=== PATIENT | female | born 2000 | race Caucasian/White ===

== ENCOUNTER 2021-03-06 17:35 | Emergency (ER) | payer BC ==
[~2021-03-06] VITALS: Ht 172.7 cm; Wt 81.6 kg
[~2021-03-06 17:35] MED LIST: AMOXICILLIN500 M2 PO; ANTIVERT/2525 MG PO; MIRALAX POWDER17 G1 PO; MOTRIN100 MG/5 M PO; MOTRIN600 MG PO; NKHM; ROBITUSSIN DM120 ML PO; TYLENOL W/CODE480 ML PO; ZITHROMAX Z PA250 MG PO; ZITHROMAX250 MG PO; ZYRTEC10 MG PO
[2021-03-06 17:55] VITALS: BP 177/107
[2021-03-06 18:34] LABS: BASO % 0.2 % (0.0-1.0); HEMATOCRIT 36.2 % (37.0-47.0); LYMPH # 1.3 10*3/uL (1.3-4.4); LYMPH % 12.9 % (27.0-41.0); MEAN CELL VOLUME 88.1 fl (81.0-99.0); MEAN CORPUSCULAR HGB 28.5 pg (27.0-31.0); MEAN CORPUSCULAR HGB CONC 32.3 g/dl (33.0-37.0); MONO % 9.9 % (3.0-9.0); NEUT # 7.4 10*3/uL (2.3-7.9); NEUT % 76.6 % (47.0-73.0); PLATELET COUNT AUTOMATED 273 10*3/uL (130-400); RED BLOOD COUNT 4.11 10*6/uL (4.10-5.10); RED CELL DISTRI WIDTH 11.6 % (0-14.5); WHITE BLOOD COUNT 9.7 10*3/uL (4.8-10.8)
[2021-03-06 18:50] LABS: ALBUMIN 3.1 gm/dl (3.1-4.5); ALKALINE PHOSPHATASE 82 U/L (45-117); BUN 6 mg/dl (7-24); CHLORIDE 107 mmol/L (98-107); CREATININE 0.69 mg/dL (0.55-1.02); LIPASE 82 U/L (73-393); POTASSIUM 3.7 mmol/L (3.5-5.1); SGOT/AST 15 IU/L (3-35); SGPT/ALT 26 U/L (12-78); SODIUM 135 mmol/L (136-145); TOTAL PROTEIN 7.4 gm/dL (6.4-8.2)
[2021-03-06 18:52] LABS: B-hCG (QUALITATIVE) NEGATIVE (NEGATIVE)
[2021-03-06 19:20] LABS: BILIRUBIN Negative (Negative); BLOOD Trace-Intact (Negative); CLARITY Clear (Clear); COLOR Yellow (Yellow); GLUCOSE Negative (Negative); KETONE Negative (Negative); LEUKO ESTERASE Trace (Negative); NITRITE Negative (Negative); UROBILINOGEN 0.2 E.U./dl (0.0-1.0)
[2021-03-06 19:32] LABS: BACTERIA 2+
[2021-03-06] MEDS ORDERED: Bactrim 200 MG/30 ML PO (22:39)
== END 2021-03-06 22:55 | disposition home or self-care (01) ==
LOC: ED 17:35
PROVIDERS: Physician Assistant
DX: N12 Tubulo-interstitial nephritis, not specified as acute or chronic (principal); Z79.899 Other long term (current) drug therapy; Z79.2 Long term (current) use of antibiotics